=== PATIENT | female | born 1955 | race Caucasian/White ===

== ENCOUNTER 2016-11-30 07:56 | Day surgery (SDC) | payer OTHER ==
[~2016-11-30] VITALS: Ht 160 cm; Wt 82.2 kg
[~2016-11-30 07:56] MED LIST: DOXY100T2 PO; LIDOCAINE 1% (10mg/ml) 2ml SDV INJ ONE; LR 1,000 ML IV SCH; OMEP40CA52 PO
[2016-11-30 08:29] VITALS: Ht 160 cm; Wt 82.2 kg
[2016-11-30 08:30] VITALS: BP 127/69; PULSE 80; RESP 11; TEMP 98.6; O2SAT 96
--- NOTE | 2016-11-30 11:31 | ANESPREOP ---
Anesthesia Record Date and Time DATE: 11/30/16 TIME: 11:28 Pre-Op Diagnosis crcs Proposed Surgical Procedure COLONOSCOPY Allergies: Coded Allergies: Penicillins (Verified Allergy, Severe, SWELLING, 11/30/16) Ht/Wt/BMI Height: 5 ' 3.00 " Weight: 82.200 kg BMI: 32.1 kg/m2 Vital Signs Date Time Temp Pulse Resp B/P Pulse Ox O2 Delivery O2 Flow Rate FiO2 11/30/16 08:30 98.6 80 11 127/69 96 Room Air Medications Inpatient Medications Current Medications Medications (Trade) Dose Ordered Sig/Ramirez Start Time Stop Time Status Last Admin Dose Admin Lactated Ringer's (Lactated Ringers) 1,000 ml @ 50 mls/hr Q20H 11/30/16 07:00 11/30/16 09:10 50 MLS/HR Doxycycline Hyclate (Doxycycline Hyclate) 100 Mg Tablet, 1 TAB PO BIDWM, ( Reported) Last Taken: on 11/28/16 2200 Omeprazole (Omeprazole) 40 Mg Capsule.dr, 1 CAP PO DAILY PRN for ACID REFLUX, (Reported) Last Taken: on Unknown Date & Time Currently on Beta Les: No Medical/Surgical History Anesthesia PMH: Reports: Reflux, Denies: *Diabetes, Anesthesia Reactions (NO AIRWAY ISSUES/N/V IN PAST), Arthritis, Cancer, Clotting Problems, Glaucoma, Malignant Hyperthermia, Renal Disease, Sleep Apnea, Thyroid Disease Smoking Status: Never smoker Has pt. smoked today?: No Use Chewing Tobacco?: No Second Hand Exposure: No Substance Use Type: does not use Substance last used: unknown Alcohol Intake: rarely Last Drink: unknown HX of Last Menstrual Period: AGE 52 Past Surgical History Orthopedic Surgeries: Yes - BILAT KNEE SCOPES Abdominal Surgeries: Genitourinary Surgeries: Cardiac Surgeries: Endocrine Surgeries: Reproductive Surgeries: Neurological Surgeries: Ear Surgeries: Nose Surgeries: Throat Surgeries: Other Surgeries: Anesthesia Adverse Reactions: FOUND nausea and vomiting Family Hx of Anesthesia Advers: none Hx of Motion Sickness: No Pertinent Findings EKG Rhythm: Sinus Rhythm Physical Exam Respiratory: Bilat breath sounds equal, Lungs clear Cardiovascular: FOUND Regular rate, rhythm, FOUND No murmur Airway Assessment Mallampati Score: II TMD: 3 Fingerbreadths Neck Extension: Good Overall Assessment: No Airway Concerns ASA: 2 Plan Anesthesia Plan: TIVA Discussion Discussed risks/options/alternatives of anesthesia and questions answered. Patient consents. Nursing pain assessment noted. Present: Spouse Attestation Statement Prior to the delivery of any anesthetic medication, I examined the patient, developed the plan, obtained the patient's consent and discussed the risk and benefits of the procedure with the patient/guardian. GABE BENEDICT CRNA Nov 30, 2016 11:31
[2016-11-30] MEDS ORDERED: ONDANSETRON 4mg/2ml INJECTION ONE (11:49)
[2016-11-30 11:57] VITALS: BP 82/43; PULSE 84; RESP 12; TEMP 97.2; O2SAT 95
[2016-11-30 12:05] VITALS: BP 88/51; PULSE 82; RESP 23; O2SAT 94
--- NOTE | 2016-11-30 12:08 | GSPOSTPROC ---
Immediate Operative Note DATE: 11/30/16 TIME: 12:06 Postop Diagnosis: Desire for screening Surgical Procedure: C-scope Surgeon: Flo ASA: 2 ROBYN MARTE MD Nov 30, 2016 12:08
[2016-11-30 12:12] VITALS: BP 116/64; PULSE 80; RESP 18; O2SAT 97
--- NOTE | 2016-11-30 12:13 | ANESPO ---
Post-Op Note Date 11/30/16 Time: 12:12 Status Pt Participated in Evaluation: Pt participated in person Vital Signs Date Time Temp Pulse Resp B/P Pulse Ox O2 Delivery O2 Flow Rate FiO2 11/30/16 11:57 97.2 84 12 82/43 95 Room Air Respiratory Function: Airway patent, Regular respirations Cardiovascular Function: Regular pulse Mental Status: Alert/oriented Pain Level Intensity: 0 Hydration: Taking po fluids, IV infusing Complications during Recovery None apparent Post-Anesthesia Notes pt. [email or web address]. well Follow-Up Instructions Instructions Per Surgeon Additional Information none GABE BENEDICT CRNA Nov 30, 2016 12:13
[2016-11-30 12:25] VITALS: BP 109/62; PULSE 77; RESP 17; O2SAT 99
[2016-11-30 12:40] VITALS: BP 106/67; PULSE 80; RESP 23; O2SAT 98
--- NOTE | 2016-11-30 16:42 | OPNOTEF ---
DATE OF OPERATION 11/30/2016 PREOPERATIVE DIAGNOSES 1. Chronic constipation. 2. Desire for screening for colon and rectal carcinoma. POSTOPERATIVE DIAGNOSES 1. Chronic constipation. 2. Desire for screening for colon and rectal carcinoma. OPERATION Total colonoscopy. SURGEON Dr. Flo NELSON ASA Class 2 FINDINGS There were no colon or rectal tumors. There were no colon or rectal polyps. There were no colonic angiodysplasia lesions. There was no melanosis coli. There was no inflammatory bowel disease. There was no colonic diverticulosis. Findings were normal throughout the colon and rectum. DESCRIPTION OF OPERATION The patient was brought to the endoscopy room. The patient was placed on a cart in the endoscopy room. The patient was placed in left lateral recumbent position on the cart in the endoscopy room. The patient was premedicated with intravenous sedation medication administered by the nurse etched circuit processor. The Olympus colonoscope was used. The colonoscope was introduced into the rectum. The colonoscope was advanced up through the rectum and colon all way up to the cecum. The appendiceal orifice was visualized. The ileocecal valve was visualized. The colonoscope was then withdrawn out through the colon and rectum and removed from the patient. Digital rectal examination was performed. Findings throughout the procedure were as described above. The patient did continue to receive intravenous sedation medication administered by the nurse etched circuit processor throughout the operation. The patient did tolerate the operation well. RECOMMENDATION Followup colonoscopy again in ten years. JOSH
== END 2016-11-30 12:49 | disposition home or self-care (01) ==
LOC: SCU 07:56
PROVIDERS: ATTEND Surgery
DX: Z12.11 Encounter for screening for malignant neoplasm of colon (principal); K59.09 Other constipation; Z79.1 Long term (current) use of non-steroidal anti-inflammatories (NSAID); Z79.899 Other long term (current) drug therapy; Z88.0 Allergy status to penicillin
CPT/HCPCS: 45378; J2405; J7120